=== PATIENT | female | born 1935 | race Caucasian/White ===

== ENCOUNTER 2016-08-04 19:31 | Inpatient (IN) | payer OTHER ==
[~2016-08-04] VITALS: Ht 157.5 cm; Wt 73.0 kg
[~2016-08-04 19:31] MED LIST: ACETAMINOPHEN325 M1 PO; ACID CONTROL150 MG PO; ADVAIR 250/501 DISK IH; ALTACE10 MG PO; ALTACE5 MG PO; AMBIEN5 MG PO; AMOXICILLIN500 M1 PO; AMOXICILLIN500 MG PO; ASPIRIN325 MG PO; AYR SALINE NA14.1 GM BOTH NARES; AYR50 ML BOTH NARES; Altace PO; BIOFREEZE GEL TP; BIOFREEZE TP; BISAC-EVAC10 MG PR; CALTRATE 6001 TABLET PO; CARDIZEM CD,CA180 MG PO; CARDIZEM CD,CA300 MG PO; CARDIZEM CD240 MG PO; CARDIZEM60 MG PO; CEFTIN500 MG PO; CENTRUM SILVER1 EAC3 PO; CENTRUM TABLET1 EACH PO; CEPACOL SORE T1 EAC9 MM; CLEOCIN300 MG PO; CLINDAMYCIN HC300 MG PO; COL-RITE100 M1 PO; COLACE100 MG PO; CRANBERRY PLUS1 EAC1 PO; CRANBERRY PLUS1 EACH PO; CRANBERRY PO; CYANOCOBALAM1000 MCG PO; CYMBALTA30 MG PO; Cardizem CD,Cartia X PO; Cardizem PO; Cepacol Lozenge, Sore Throat Lozenge MM; Colace PO; Cranberry PO; DILTIAZEM 24HR300 MG PO; DITROPAN XL10 MG PO; DOCUSATE SODIU100 MG PO; DOXYCYCLINE HY100 MG PO; DULCOLAX10 MG; DULCOLAX10 MG PR; DULOXETINE HCL30 MG PO; DUONEB 2.5-0.5 M3 ML IH; Doxycycline PO; DuoNeb IH; ECOTRIN325 MG PO; ENDOCET 5-3251 EACH PO; ENEMA133 M2 PR; EXELON PATCH4.6 MG TD; EXELON1.5 MG PO; EXELON3 MG PO; Exelon PO; FISH OIL 1,2001 EAC4 PO; FISH OIL CONC1 EACH PO; FLEET ENEMA-AD118 ML PR; FLONASE16 G1 BOTH NARES; FLONASE16 G1 NS; FLORASTOR250 MG PO; FLUTICASONE PROP BOTH NARES; FLUZONE HI180 MCG/06 IM; FOSAMAX PLUS PO; FREEZE IT RE113.4 GM TP; FUROSEMIDE20 MG PO; FUROSEMIDE40 MG PO; Flonase BOTH NARES; GAVILAX17 GM PO; GLUCOPHAGE500 MG PO; Glucophage PO; I-CAPS AREDS S1 EACH PO; K-DUR10 MEQ PO; K-DUR20 MEQ PO; K-TAB10 MEQ PO; KEFLEX500 MG PO; KLOR-CON 1010 ME1 PO; KLOR-CON M1010 MEQ PO; LASIX20 MG PO; LASIX40 MG PO; LIDOCAINE700 MG TD; LIDODERM 5% P1 PATCH TD; LOPRESSOR100 M1 PO; LOPRESSOR50 MG PO; LUTEIN20 M1 PO; LUTEIN20 MG PO; LYRICA100 MG PO; LYRICA50 MG PO; LYRICA75 MG PO; MACROBID100 MG PO; MAG-OXIDE PO; MAG-OXIDE400 MG PO; MAGNESIUM OXID400 MG PO; MAGNESIUM27 MG PO; MAGNESIUM400 M1 PO; MAGNESIUM500 MG PO; MAGOX 400400 MG PO; METOPROLOL TAR100 MG PO; MILK OF MAGN PO; MILK OF MAGNESI10 ML PO; MIRALAX17 GM PO; MULTIVITAMIN1 EAC2 PO; Mag-Ox PO; Milk Of Magnesia,MOM PO; NASAL DECONGEST30 ML BOTH NARES; NASONEX17 GM BOTH NARES; NASONEX17 GM NS; NIZORAL SHAMPO120 ML TP; OMEGA-31000 M1 PO; OMEPRAZOLE40 M1 PO; OXAYDO5 MG PO; OXYCODONE HCL10 MG PO; OXYCODONE HCL5 MG PO; OXYCODONE20 MG PO; OXYCONTIN10 MG PO; OXYCONTIN15 MG PO; OXYCONTIN20 MG PO; OXYCONTIN30 MG PO; Ocean Nasal 0.65% BOTH NARES; OxyCONTIN PO; PANTOPRAZOLE SO40 MG PO; PHILLIPS'400 MG/5 M PO; POTASSIUM CHLO10 ME3 PO; POTASSIUM CHLO10 ME4 PO; POTASSIUM CHLO20 ME2 PO; PREMARIN0.625 MG PO; PREMARIN1.25 MG PO; PRENATAL PLUS1 EAC4 PO; PRESERVISIO1 CAPSULE PO; PRESERVISION A1 EAC2 PO; PRESERVISION T1 EACH PO; PRILOSEC10 MG PO; PROTONIX40 MG PO; PROVENTIL,2.5 MG/3 M IH; Pepcid PO; Protonix PO; RAMIPRIL10 MG PO; RAMIPRIL5 MG PO; RANITIDINE HCL150 M1 PO; RANITIDINE HCL150 MG PO; RIVASTIGMINE1.5 MG PO; RIVASTIGMINE3 MG PO; ROXICODONE5 MG PO; Remove Lidoderm Patc TD; SALINE MIST45 ML BOTH NARES; SENEXON-S TABL1 EACH PO; SENNA LAX8.6 MG PO; SENNA S TABLET1 EACH PO; SENNA8.6 MG PO; SPIRIVA1 INHALATI IH; TIZANIDINE HCL2 MG PO; TOPROL XL100 MG PO; TYLENOL REGULA325 MG PO; VENTOLIN HFA18 GM IH; VITAMIN D400 INTUNI PO; Vibramycin, Doryx PO; XARELTO15 MG PO; XOPENEX1.25 MG/0. IH; XOPENEX1.25 MG/3 IH; Xarelto PO; ZANTAC150 MG PO; ZAROXOLYN2.5 MG PO; ZITHROMAX250 MG PO; [UNRECOGNIZED DRUG - OTHER] PO; [UNRECOGNIZED DRUG - OTHER] PO; [UNRECOGNIZED DRUG - OTHER] TP; oxyCODONE PO; predniSONE PO
[2016-08-04 20:14] LABS: EOSINOPHIL (%) 1.3 % (0-5); EOSINOPHIL COUNT 0.1 K/uL (0-0.3); HEMATOCRIT 40.4 % (36.0-46.0); IMMATURE GRANULOCYTE (%) 0.5 % (0.0-0.7); INSTRUMENT ABS NEUTROPHIL CT 6.2 K/uL; LYMPHOCYTE COUNT 0.8 K/uL (1.0-2.8); MCH 27.5 PG (29.0-34.0); MCHC 31.7 G/DL (30.0-36.0); MCV 86.9 FL (83-99); MEAN PLAT.VOLUME 10.6 uM^3 (9.5-12.4); MONOCYTE (%) 11.3 % (3-12); MONOCYTE COUNT 0.9 K/uL (0-0.8); NEUTROPHIL (%) 77.1 % (45-76); NEUTROPHIL COUNT 6.2 K/uL (1.8-6.4); PLATELET COUNT 161 K/uL (156-360); RBC DIS.WIDTH-CV 15.5 % (11.8-14.6); RBC DIS.WIDTH-SD 48.8 % (39-53); RED BLOOD COUNT 4.65 M/uL (3.80-5.20)
[2016-08-04 20:19] LABS: CHLORIDE 106 mEq/L (99-109); POTASSIUM 4.6 mEq/L (3.7-5.4); SODIUM 141 mEq/L (136-147)
[2016-08-04 20:20] LABS: GLUCOSE 133 mg/dL (70-99)
[2016-08-04 20:22] LABS: ANION GAP 11 MEQ/L (2-14)
[2016-08-04 20:24] LABS: GFR ESTIMATE (CALCULATED) 31 mL/min/
[2016-08-04 20:25] LABS: UREA NITROGEN (BUN) 23 mg/dL (9-23)
[2016-08-04 20:32] LABS: TROP-I INTERPRETATION NEGATIVE; TROPONIN-I < 0.01 ng/mL (0.0-0.30)
[2016-08-04 21:03] LABS: ADD MIUA? YES; BILIRUBIN NEGATIVE; BLOOD NEGATIVE; COLOR YELLOW ((YELLOW)); GLUCOSE (STRIP) NEGATIVE; KETONES NEGATIVE; LEUKOCYTES SMALL; NITRITE NEGATIVE; PROTEIN (STRIP) NEGATIVE; SPECIFIC GRAVITY 1.011 (1.000-1.030); UROBILINOGEN 0.2 MG/DL (0.2-1.0)
[2016-08-04 21:36] LABS: BACTERIA RARE /HPF; EPITHELIAL CELLS RARE /HPF; MUCUS TRACE /LPF; RED BLOOD CELLS 0-5 /HPF (0-5); UCUL ADDED? NO; WHITE BLOOD CELLS CLUMP FEW /HPF (0-5)
[2016-08-04] MEDS ORDERED: PROAIR HFA8.5 GM IH (23:03)
[2016-08-04] MEDS ORDERED: PROVENTIL,2.5 MG/3 M IH (23:12)
[2016-08-04] MEDS ORDERED: MIRALAX255 GM PO (23:20)
[2016-08-04] MEDS ORDERED: LYRICA75 MG PO (23:26)
[2016-08-05 02:30] VITALS: BP 137/83
[2016-08-05 04:14] VITALS: BP 152/72
[2016-08-05 07:40] VITALS: BP 169/85
[2016-08-05 08:41] LABS: METH RESISTANT S AUREUS PCR POSITIVE (NEGATIVE); PROBE CHECK PASS
[2016-08-05 10:25] LABS: HEMATOCRIT 40.2 % (36.0-46.0); MCH 27.5 PG (29.0-34.0); MCHC 31.3 G/DL (30.0-36.0); MCV 87.8 FL (83-99); MEAN PLAT.VOLUME 10.7 uM^3 (9.5-12.4); PLATELET COUNT 137 K/uL (156-360); RBC DIS.WIDTH-CV 15.4 % (11.8-14.6); RBC DIS.WIDTH-SD 49.1 % (39-53); RED BLOOD COUNT 4.58 M/uL (3.80-5.20); WHITE BLOOD COUNT 6.9 K/uL (4.1-10.2)
[2016-08-05 10:43] LABS: ANION GAP 9 MEQ/L (2-14); CHLORIDE 106 MEQ/L (99-109); POTASSIUM 4.2 MEQ/L (3.7-5.4); SAMPLE HEMOLYSIS CHECK 0; SAMPLE ICTERIC CHECK 0; SAMPLE LIPEMIA CHECK 0; SODIUM 142 MEQ/L (136-147)
[2016-08-05 10:49] LABS: GFR ESTIMATE (CALCULATED) 42 mL/min/; GLUCOSE 141 mg/dL (70-99); UREA NITROGEN (BUN) 19 mg/dL (9-23)
[2016-08-05 10:50] VITALS: BP 166/94
[2016-08-05 15:57] VITALS: BP 146/67
[2016-08-05 20:25] VITALS: BP 142/74
[2016-08-06 00:10] VITALS: BP 140/78
[2016-08-06 03:49] VITALS: BP 150/79
[2016-08-06 06:36] LABS: ANION GAP 9 MEQ/L (2-14); CHLORIDE 103 MEQ/L (99-109); GFR ESTIMATE (CALCULATED) 50 mL/min/; POTASSIUM 3.9 MEQ/L (3.7-5.4); SAMPLE HEMOLYSIS CHECK 0; SAMPLE ICTERIC CHECK 0; SAMPLE LIPEMIA CHECK 0; SODIUM 144 MEQ/L (136-147); UREA NITROGEN (BUN) 16 mg/dL (9-23)
[2016-08-06 07:28] LABS: EOSINOPHIL (%) 1.5 % (0-5); EOSINOPHIL COUNT 0.1 K/uL (0-0.3); HEMATOCRIT 39.7 % (36.0-46.0); IMMATURE GRANULOCYTE (%) 0.4 % (0.0-0.7); LYMPHOCYTE COUNT 0.5 K/uL (1.0-2.8); MCH 27.9 PG (29.0-34.0); MCHC 32.2 G/DL (30.0-36.0); MCV 86.5 FL (83-99); MEAN PLAT.VOLUME 11.1 uM^3 (9.5-12.4); MONOCYTE (%) 11.2 % (3-12); MONOCYTE COUNT 0.6 K/uL (0-0.8); PLATELET COUNT 146 K/uL (156-360); RBC DIS.WIDTH-CV 15.2 % (11.8-14.6); RBC DIS.WIDTH-SD 47.9 % (39-53); RED BLOOD COUNT 4.59 M/uL (3.80-5.20); WHITE BLOOD COUNT 5.2 K/uL (4.1-10.2)
[2016-08-06 07:33] VITALS: BP 138/70
[2016-08-06 08:05] LABS: GLUCOSE 101 mg/dL (70-99)
[2016-08-06 11:55] VITALS: BP 180/56
[2016-08-06 19:45] VITALS: BP 124/82
[2016-08-06 23:45] VITALS: BP 152/60
[2016-08-07 04:18] VITALS: BP 164/77
[2016-08-07 06:04] LABS: EOSINOPHIL (%) 1.9 % (0-5); EOSINOPHIL COUNT 0.1 K/uL (0-0.3); HEMATOCRIT 40.7 % (36.0-46.0); IMMATURE GRANULOCYTE (%) 0.4 % (0.0-0.7); INSTRUMENT ABS NEUTROPHIL CT 3.9 K/uL; LYMPHOCYTE COUNT 0.6 K/uL (1.0-2.8); MCH 27.2 PG (29.0-34.0); MCHC 31.4 G/DL (30.0-36.0); MCV 86.4 FL (83-99); MEAN PLAT.VOLUME 10.6 uM^3 (9.5-12.4); MONOCYTE (%) 12.2 % (3-12); MONOCYTE COUNT 0.6 K/uL (0-0.8); NEUTROPHIL (%) 74.3 % (45-76); NEUTROPHIL COUNT 3.9 K/uL (1.8-6.4); PLATELET COUNT 133 K/uL (156-360); RBC DIS.WIDTH-CV 15.2 % (11.8-14.6); RBC DIS.WIDTH-SD 47.8 % (39-53); RED BLOOD COUNT 4.71 M/uL (3.80-5.20); WHITE BLOOD COUNT 5.3 K/uL (4.1-10.2)
[2016-08-07 06:29] LABS: ANION GAP 8 MEQ/L (2-14); CHLORIDE 104 MEQ/L (99-109); GFR ESTIMATE (CALCULATED) 50 mL/min/; GLUCOSE 97 mg/dL (70-99); POTASSIUM 3.9 MEQ/L (3.7-5.4); SAMPLE HEMOLYSIS CHECK 0; SAMPLE ICTERIC CHECK 0; SAMPLE LIPEMIA CHECK 0; SODIUM 144 MEQ/L (136-147); UREA NITROGEN (BUN) 16 mg/dL (9-23)
[2016-08-07 07:41] VITALS: BP 177/85
[2016-08-07 12:02] VITALS: BP 124/65
[2016-08-07 15:38] VITALS: BP 137/63
== END 2016-08-07 17:06 | disposition home or self-care (01) | DRG 689 ==
LOC: EME 19:31 → EDOF 08-05 00:48 → 5WEST 08-05 00:48 → EDOF 08-05 00:48 → 5WEST 08-05 02:06
PROVIDERS: Emergency Medicine; Hospitalist
DX: N39.0 Urinary tract infection, site not specified (principal); G93.40 Encephalopathy, unspecified; J96.21 Acute and chronic respiratory failure with hypoxia; F03.90 Unspecified dementia, unspecified severity, without behavioral disturbance, psychotic disturbance, mood disturbance, and anxiety; J44.9 Chronic obstructive pulmonary disease, unspecified; I48.0 Paroxysmal atrial fibrillation; F32.9 Major depressive disorder, single episode, unspecified; E11.40 Type 2 diabetes mellitus with diabetic neuropathy, unspecified; N17.9 Acute kidney failure, unspecified; G89.4 Chronic pain syndrome; E78.5 Hyperlipidemia, unspecified; K21.9 Gastro-esophageal reflux disease without esophagitis; D50.9 Iron deficiency anemia, unspecified; G43.909 Migraine, unspecified, not intractable, without status migrainosus; I50.32 Chronic diastolic (congestive) heart failure; I11.0 Hypertensive heart disease with heart failure; Z66 Do not resuscitate; Z79.891 Long term (current) use of opiate analgesic
CPT/HCPCS: 70450; 71010; 71020; 80048; 81003; 83605; 84484; 85025; 85027; 87040; 87086; 87641; 93005; 93306; 94640 76; 94799; 99202; 99281; 99285; G8978 GP CI; G8979 GP CH; J0696; J1650; J1940; J7030; J7050

== ENCOUNTER 2017-01-31 10:42 | Emergency (ER) | payer OTHER ==
[~2017-01-31] VITALS: Ht 157.5 cm; Wt 72.0 kg
[~2017-01-31 10:42] MED LIST changes: +MIRALAX255 GM PO; +PROAIR HFA8.5 GM IH
[2017-01-31 11:42] LABS: EOSINOPHIL (%) 0.1 % (0-5); HEMATOCRIT 38.9 % (36.0-46.0); IMMATURE GRANULOCYTE (%) 0.3 % (0.0-0.7); INSTRUMENT ABS NEUTROPHIL CT 7.7 K/uL; LYMPHOCYTE COUNT 0.6 K/uL (1.0-2.8); MCHC 32.6 G/DL (30.0-36.0); MCV 85.9 FL (83-99); MEAN PLAT.VOLUME 10.5 uM^3 (9.5-12.4); MONOCYTE (%) 7.3 % (3-12); MONOCYTE COUNT 0.7 K/uL (0-0.8); NEUTROPHIL (%) 85.6 % (45-76); NEUTROPHIL COUNT 7.7 K/uL (1.8-6.4); PLATELET COUNT 130 K/uL (156-360); RBC DIS.WIDTH-SD 47.1 % (39-53); RED BLOOD COUNT 4.53 M/uL (3.80-5.20)
[2017-01-31 11:54] LABS: CHLORIDE 101 mEq/L (99-109); POTASSIUM 3.6 mEq/L (3.7-5.4); SODIUM 141 mEq/L (136-147)
[2017-01-31 11:56] LABS: GLUCOSE 125 mg/dL (70-99)
[2017-01-31 11:57] LABS: ANION GAP 13 MEQ/L (2-14)
[2017-01-31 11:59] LABS: GFR ESTIMATE (CALCULATED) 56 mL/min/
[2017-01-31] MEDS ORDERED: CRANBERRY425 MG PO (11:59)
[2017-01-31 12:00] LABS: UREA NITROGEN (BUN) 15 mg/dL (9-23)
[2017-01-31] MEDS ORDERED: AYR SALINE NA14.1 GM BOTH NARES (12:02)
[2017-01-31] MEDS ORDERED: BIOFREEZE TP (12:03)
[2017-01-31] MEDS ORDERED: PRESERVISION A1 EAC2 PO (12:11)
[2017-01-31] MEDS ORDERED: LASIX80 MG PO (12:13)
[2017-01-31] MEDS ORDERED: VIBRAMYCIN100 MG PO (12:14)
[2017-01-31] MEDS ORDERED: FLORASTOR250 MG PO (12:15)
[2017-01-31] MEDS ORDERED: SYSTANE ULTRA 015 ML BOTH EYES (12:17)
[2017-01-31] MEDS ORDERED: PYRIDIUM100 MG PO (12:17)
[2017-01-31 13:37] LABS: ADD MIUA? NO; BILIRUBIN NEGATIVE; BLOOD NEGATIVE; COLOR YELLOW ((YELLOW)); GLUCOSE (STRIP) NEGATIVE; KETONES NEGATIVE; LEUKOCYTES NEGATIVE; NITRITE NEGATIVE; PROTEIN (STRIP) NEGATIVE; UCUL ADDED? NO; UROBILINOGEN 0.2 MG/DL (0.2-1.0)
[2017-01-31 17:05] VITALS: BP 146/68
== END 2017-01-31 17:06 ==
LOC: EME 10:42
PROVIDERS: Emergency Medicine
DX: R50.9 Fever, unspecified (principal); J44.9 Chronic obstructive pulmonary disease, unspecified; R22.42 Localized swelling, mass and lump, left lower limb; I11.0 Hypertensive heart disease with heart failure; I50.9 Heart failure, unspecified; F03.90 Unspecified dementia, unspecified severity, without behavioral disturbance, psychotic disturbance, mood disturbance, and anxiety; E78.5 Hyperlipidemia, unspecified; K21.9 Gastro-esophageal reflux disease without esophagitis
CPT/HCPCS: 71010; 80048; 81003; 83605; 85025; 93971; 99281; 99285

== ENCOUNTER 2017-03-10 11:08 | Inpatient (IN) | payer OTHER ==
[~2017-03-10] VITALS: Ht 158.8 cm; Wt 75.5 kg
[~2017-03-10 11:08] MED LIST changes: +CRANBERRY425 MG PO; +LASIX80 MG PO; +PYRIDIUM100 MG PO; +SYSTANE ULTRA 015 ML BOTH EYES; +VIBRAMYCIN100 MG PO
[2017-03-10 11:58] LABS: ADD MIUA? NO; BILIRUBIN NEGATIVE; BLOOD NEGATIVE; COLOR COLORLESS ((YELLOW)); GLUCOSE (STRIP) NEGATIVE; KETONES NEGATIVE; LEUKOCYTES NEGATIVE; NITRITE NEGATIVE; PROTEIN (STRIP) NEGATIVE; SPECIFIC GRAVITY 1.004 (1.000-1.030); UCUL ADDED? NO; UROBILINOGEN 0.2 MG/DL (0.2-1.0)
[2017-03-10 12:07] LABS: EOSINOPHIL (%) 0.3 % (0-5); HEMATOCRIT 43.7 % (36.0-46.0); IMMATURE GRANULOCYTE (%) 0.6 % (0.0-0.7); IMMATURE GRANULOCYTE COUNT 0.1 K/uL; INSTRUMENT ABS NEUTROPHIL CT 8.7 K/uL; LYMPHOCYTE COUNT 0.4 K/uL (1.0-2.8); MCH 27.4 PG (29.0-34.0); MCHC 31.8 G/DL (30.0-36.0); MCV 86.2 FL (83-99); MEAN PLAT.VOLUME 10.8 uM^3 (9.5-12.4); MONOCYTE COUNT 0.5 K/uL (0-0.8); NEUTROPHIL (%) 89.8 % (45-76); NEUTROPHIL COUNT 8.7 K/uL (1.8-6.4); PLATELET COUNT 167 K/uL (156-360); RBC DIS.WIDTH-CV 15.9 % (11.8-14.6); RBC DIS.WIDTH-SD 49.4 % (39-53); RED BLOOD COUNT 5.07 M/uL (3.80-5.20); WHITE BLOOD COUNT 9.7 K/uL (4.1-10.2)
[2017-03-10 12:12] LABS: INTER. NORMALIZED RATIO 1.1; PROTHROMBIN TIME 12.9 SEC (10.2-12.9)
[2017-03-10 12:15] LABS: CHLORIDE 101 mEq/L (99-109); POTASSIUM 4.3 mEq/L (3.7-5.4); PTT 29.3 SEC (25-37); SODIUM 140 mEq/L (136-147)
[2017-03-10 12:18] LABS: GLUCOSE 134 mg/dL (70-99)
[2017-03-10 12:19] LABS: ANION GAP 12 MEQ/L (2-14); TOTAL BILIRUBIN 1.2 mg/dL (0.0-1.0)
[2017-03-10 12:21] LABS: ALKALINE PHOSPHATASE 159 IU/L (3-129); GFR ESTIMATE (CALCULATED) 46 mL/min/
[2017-03-10 12:22] LABS: UREA NITROGEN (BUN) 17 mg/dL (9-23)
[2017-03-10 12:23] LABS: DIRECT BILIRUBIN 0.4 mg/dL (0.0-0.3)
[2017-03-10 12:25] LABS: LIPASE 4 U/L (1.0-51.0)
[2017-03-10 12:27] LABS: TROP-I INTERPRETATION NEGATIVE; TROPONIN-I 0.02 ng/mL (0.0-0.30)
[2017-03-10] MEDS ORDERED: BIOFREEZE TP (12:45)
[2017-03-10] MEDS ORDERED: LIDODERM 5% P1 PATCH TD (12:46)
[2017-03-10] MEDS ORDERED: [UNRECOGNIZED DRUG - OTHER] TP (12:47)
[2017-03-10] MEDS ORDERED: VENTOLIN HFA18 GM IH (12:48)
[2017-03-10] MEDS ORDERED: SENEXON-S TABL1 EACH PO (12:54)
[2017-03-10] MEDS ORDERED: KLOR-CON 1010 ME1 PO (12:56)
[2017-03-10 17:05] VITALS: BP 122/87
[2017-03-10 20:00] VITALS: BP 127/70
[2017-03-10 23:36] VITALS: BP 158/84
[2017-03-11 01:48] LABS: METH RESISTANT S AUREUS PCR POSITIVE (NEGATIVE)
[2017-03-11 01:56] LABS: PROBE CHECK PASS
[2017-03-11 03:44] VITALS: BP 136/76
[2017-03-11 07:22] LABS: HEMATOCRIT 37.8 % (36.0-46.0); MCH 28.1 PG (29.0-34.0); MCHC 32.5 G/DL (30.0-36.0); MCV 86.5 FL (83-99); RBC DIS.WIDTH-CV 15.9 % (11.8-14.6); RBC DIS.WIDTH-SD 50.4 % (39-53); RED BLOOD COUNT 4.37 M/uL (3.80-5.20); WHITE BLOOD COUNT 10.9 K/uL (4.1-10.2)
[2017-03-11 07:24] LABS: ANION GAP 14 MEQ/L (2-14); CHLORIDE 105 MEQ/L (99-109); GFR ESTIMATE (CALCULATED) 56 mL/min/; GLUCOSE 108 mg/dL (70-99); POTASSIUM 3.8 MEQ/L (3.7-5.4); SAMPLE HEMOLYSIS CHECK 0; SAMPLE ICTERIC CHECK 0; SAMPLE LIPEMIA CHECK 0; SODIUM 142 MEQ/L (136-147); UREA NITROGEN (BUN) 12 mg/dL (9-23)
[2017-03-11 08:27] LABS: PLATELET COUNT UNABLE TO REPORT K/uL (156-360)
[2017-03-11 09:10] VITALS: BP 136/74
[2017-03-11 13:30] VITALS: BP 132/74
[2017-03-11 16:51] VITALS: BP 136/72
[2017-03-11 20:05] VITALS: BP 142/84
[2017-03-11 23:44] VITALS: BP 122/74
[2017-03-12 01:30] LABS: POINT-OF-CARE METER ID UU14188625
[2017-03-12 04:00] VITALS: BP 120/80
[2017-03-12 06:36] LABS: HEMATOCRIT 40.9 % (36.0-46.0); MCH 27.1 PG (29.0-34.0); MCHC 31.8 G/DL (30.0-36.0); MCV 85.4 FL (83-99); MEAN PLAT.VOLUME 9.7 uM^3 (9.5-12.4); RBC DIS.WIDTH-CV 15.3 % (11.8-14.6); RBC DIS.WIDTH-SD 48.3 % (39-53); RED BLOOD COUNT 4.79 M/uL (3.80-5.20); WHITE BLOOD COUNT 6.9 K/uL (4.1-10.2)
[2017-03-12 06:54] LABS: PLATELET COUNT 141 K/uL (156-360)
[2017-03-12 07:23] LABS: ALKALINE PHOSPHATASE 120 IU/L (3-129); ANION GAP 13 MEQ/L (2-14); CHLORIDE 105 MEQ/L (99-109); GFR ESTIMATE (CALCULATED) > 59 mL/min/; GLUCOSE 153 mg/dL (70-99); POTASSIUM 3.3 MEQ/L (3.7-5.4); SAMPLE HEMOLYSIS CHECK 0; SAMPLE ICTERIC CHECK 0; SAMPLE LIPEMIA CHECK 0; SODIUM 142 MEQ/L (136-147); TOTAL BILIRUBIN 1.4 MG/DL (0.0-1.0); UREA NITROGEN (BUN) 12 mg/dL (9-23)
[2017-03-12 07:54] VITALS: BP 136/74
[2017-03-12 12:12] VITALS: BP 124/68
[2017-03-12 16:19] VITALS: BP 122/68
[2017-03-12 19:48] VITALS: BP 132/78
[2017-03-12 23:52] VITALS: BP 140/76
[2017-03-13 03:54] VITALS: BP 132/80
[2017-03-13 06:19] LABS: HEMATOCRIT 43.5 % (36.0-46.0); MCH 27.9 PG (29.0-34.0); MCHC 32.9 G/DL (30.0-36.0); PLATELET COUNT 177 K/uL (156-360); RBC DIS.WIDTH-CV 15.7 % (11.8-14.6); RBC DIS.WIDTH-SD 48.2 % (39-53); RED BLOOD COUNT 5.12 M/uL (3.80-5.20)
[2017-03-13 06:47] LABS: ANION GAP 12 MEQ/L (2-14); CHLORIDE 108 MEQ/L (99-109); GFR ESTIMATE (CALCULATED) > 59 mL/min/; GLUCOSE 129 mg/dL (70-99); POTASSIUM 3.2 MEQ/L (3.7-5.4); SAMPLE HEMOLYSIS CHECK 0; SAMPLE ICTERIC CHECK 0; SAMPLE LIPEMIA CHECK 0; SODIUM 147 MEQ/L (136-147); UREA NITROGEN (BUN) 15 mg/dL (9-23)
[2017-03-13 07:25] VITALS: BP 124/72
[2017-03-13 11:52] VITALS: BP 126/72
[2017-03-13 16:23] VITALS: BP 134/80
[2017-03-13 18:04] LABS: C DIFF TOXIN NEGATIVE (NEGATIVE)
[2017-03-13 18:13] LABS: PROBE CHECK PASS; SPECIMEN PROCESSING CONTROL PASS
[2017-03-13 19:44] VITALS: BP 190/89
[2017-03-13 23:45] VITALS: BP 187/82
[2017-03-14 07:03] LABS: ANION GAP 12 MEQ/L (2-14); CHLORIDE 110 MEQ/L (99-109); GFR ESTIMATE (CALCULATED) 56 mL/min/; GLUCOSE 122 mg/dL (70-99); POTASSIUM 3.8 MEQ/L (3.7-5.4); SAMPLE HEMOLYSIS CHECK 0; SAMPLE ICTERIC CHECK 0; SAMPLE LIPEMIA CHECK 0; SODIUM 144 MEQ/L (136-147); UREA NITROGEN (BUN) 19 mg/dL (9-23)
[2017-03-14 07:57] VITALS: BP 173/106
[2017-03-14 11:08] VITALS: BP 162/100
[2017-03-14 16:30] VITALS: BP 189/107
[2017-03-14 19:11] VITALS: BP 165/101
[2017-03-15 00:41] VITALS: BP 168/88
[2017-03-15 03:39] VITALS: BP 142/78
[2017-03-15 06:30] LABS: HEMATOCRIT 47.2 % (36.0-46.0); MCH 26.6 PG (29.0-34.0); MCHC 31.4 G/DL (30.0-36.0); MCV 84.9 FL (83-99); MEAN PLAT.VOLUME 10.2 uM^3 (9.5-12.4); RBC DIS.WIDTH-CV 15.2 % (11.8-14.6); RBC DIS.WIDTH-SD 46.9 % (39-53); RED BLOOD COUNT 5.56 M/uL (3.80-5.20); WHITE BLOOD COUNT 10.1 K/uL (4.1-10.2)
[2017-03-15 06:32] LABS: PLATELET COUNT 237 K/uL (156-360)
[2017-03-15 07:11] LABS: ANION GAP 10 MEQ/L (2-14); CHLORIDE 111 MEQ/L (99-109); GFR ESTIMATE (CALCULATED) 56 mL/min/; GLUCOSE 121 mg/dL (70-99); SAMPLE HEMOLYSIS CHECK 0; SAMPLE ICTERIC CHECK 0; SAMPLE LIPEMIA CHECK 0; SODIUM 146 MEQ/L (136-147); UREA NITROGEN (BUN) 21 mg/dL (9-23)
[2017-03-15 07:43] VITALS: BP 190/92
[2017-03-15] MEDS ORDERED: FUROSEMIDE20 MG PO (09:28)
[2017-03-15] MEDS ORDERED: PREDNISONE20 MG PO (09:28)
[2017-03-15] MEDS ORDERED: MUCINEX600 MG PO (09:28)
[2017-03-15 11:30] VITALS: BP 186/89
== END 2017-03-15 12:46 | DRG 189 ==
LOC: EME → EDBD 11:08 → 5SOUTH 14:39 → EDOF 14:39 → CANRESERV 14:42 → ENRESERV 14:42 → 5SOUTH 16:43
PROVIDERS: Emergency Medicine; Hospitalist; Internal Medicine; Nurse Practitioner Adult Health; Physician Assistant Medical
DX: J96.01 Acute respiratory failure with hypoxia (principal); J44.1 Chronic obstructive pulmonary disease with (acute) exacerbation; J44.0 Chronic obstructive pulmonary disease with (acute) lower respiratory infection; J18.9 Pneumonia, unspecified organism; Y95 Nosocomial condition; I11.0 Hypertensive heart disease with heart failure; I50.33 Acute on chronic diastolic (congestive) heart failure; E11.42 Type 2 diabetes mellitus with diabetic polyneuropathy; E87.6 Hypokalemia; Z99.81 Dependence on supplemental oxygen; I95.9 Hypotension, unspecified; I34.0 Nonrheumatic mitral (valve) insufficiency; I48.91 Unspecified atrial fibrillation; G89.29 Other chronic pain; E78.5 Hyperlipidemia, unspecified; F03.90 Unspecified dementia, unspecified severity, without behavioral disturbance, psychotic disturbance, mood disturbance, and anxiety; J98.11 Atelectasis; K21.9 Gastro-esophageal reflux disease without esophagitis; G43.909 Migraine, unspecified, not intractable, without status migrainosus; R29.6 Repeated falls; R00.0 Tachycardia, unspecified; Z91.81 History of falling; Z66 Do not resuscitate
CPT/HCPCS: 71010; 71020; 71275; 74174; 80048; 80053; 80076; 80202; 81003; 82948; 83605; 83690; 83880; 84484; 85025; 85027; 85610; 85730; 87040; 87493; 87641; 93005; 94640; 94640 76; 94760; 94799; 97530 GP; 99202; 99281; 99285; J1650; J2543; J2920; J3370; J7030; J7050; J7512

== ENCOUNTER 2017-06-16 21:13 | Inpatient (IN) | payer OTHER ==
[~2017-06-16] VITALS: Ht 157.5 cm; Wt 69.5 kg
[~2017-06-16 21:13] MED LIST changes: +MUCINEX600 MG PO; +PREDNISONE20 MG PO
[2017-06-16 21:42] LABS: HEMATOCRIT 41.2 % (36.0-46.0); HEMOGLOBIN 13.2 G/DL (11.9-15.5); MCV 87.5 FL (83-99); PLATELET COUNT 160 K/uL (156-360); RBC DIS.WIDTH-CV 17.7 % (11.8-14.6); RED BLOOD COUNT 4.71 M/uL (3.80-5.20); WHITE BLOOD COUNT 5.5 K/uL (4.1-10.2)
[2017-06-16 21:53] LABS: CHLORIDE 115 mEq/L (99-109); SODIUM 134 mEq/L (136-147)
[2017-06-16 21:54] LABS: GLUCOSE 148 mg/dL (70-99)
[2017-06-16 21:58] LABS: CREATININE 1.1 mg/dL (0.6-1.3); GFR ESTIMATE (CALCULATED) 50 mL/min/
[2017-06-16 21:59] LABS: UREA NITROGEN (BUN) 29 mg/dL (9-23)
[2017-06-16 22:06] LABS: POTASSIUM 6.2 mEq/L (3.7-5.4)
[2017-06-17 00:05] LABS: APPEARANCE CLEAR ((CLEAR)); BILIRUBIN NEGATIVE; BLOOD NEGATIVE; COLOR YELLOW ((YELLOW)); GLUCOSE (STRIP) NEGATIVE; KETONES NEGATIVE; LEUKOCYTES TRACE; NITRITE NEGATIVE; PROTEIN (STRIP) NEGATIVE; SPECIFIC GRAVITY 1.008 (1.000-1.030); UROBILINOGEN 0.2 MG/DL (0.2-1.0)
[2017-06-17 00:13] LABS: BACTERIA RARE /HPF; EPITHELIAL CELLS RARE /HPF; MUCUS NONE SEEN /LPF; RED BLOOD CELLS 0-5 /HPF (0-5); UCUL ADDED? NO; WHITE BLOOD CELLS 0-5 /HPF (0-5)
[2017-06-17 00:48] LABS: CHLORIDE 119 mEq/L (99-109); SODIUM 137 mEq/L (136-147)
[2017-06-17 00:49] LABS: GLUCOSE 120 mg/dL (70-99)
[2017-06-17 00:51] LABS: POTASSIUM 6.2 mEq/L (3.7-5.4)
[2017-06-17 00:53] LABS: CREATININE 0.9 mg/dL (0.6-1.3); GFR ESTIMATE (CALCULATED) > 59 mL/min/
[2017-06-17 00:54] LABS: UREA NITROGEN (BUN) 27 mg/dL (9-23)
[2017-06-17 01:33] LABS: BASE EXCESS -11.6 mEq/L (-3 to +3); BICARBONATE 15.6 mEq/L (22-26); PO2 94 mm Hg (80-100)
[2017-06-17 01:34] LABS: COMMENTS - BLOOD GASES A+C+; DEVICE NC; O2 FLOW 2 L/MIN; PCO2 39 mm Hg (35-45); SITE RR; pH 7.21 (7.35-7.45)
[2017-06-17] MEDS ORDERED: ALDACTONE25 MG PO (01:51)
[2017-06-17] MEDS ORDERED: TRAMADOL HCL50 MG PO ×2 (01:53)
[2017-06-17] MEDS ORDERED: ZANTAC150 MG PO (01:54)
[2017-06-17] MEDS ORDERED: OXYCODONE HCL5 MG PO (01:55)
[2017-06-17] MEDS ORDERED: KLOR-CON 1010 ME1 PO (01:57)
[2017-06-17 05:32] LABS: CHLORIDE 118 mEq/L (99-109); SODIUM 138 mEq/L (136-147)
[2017-06-17 05:33] LABS: MAGNESIUM 1.7 mg/dL (1.3-2.7)
[2017-06-17 05:34] LABS: GLUCOSE 99 mg/dL (70-99)
[2017-06-17 05:38] LABS: CREATININE 0.9 mg/dL (0.6-1.3); GFR ESTIMATE (CALCULATED) > 59 mL/min/; PHOSPHORUS 3.9 mg/dL (2.5-4.9)
[2017-06-17 05:39] LABS: UREA NITROGEN (BUN) 25 mg/dL (9-23)
[2017-06-17 05:41] LABS: CREATINE KINASE 21 IU/L (1-294); POTASSIUM 6.7 mEq/L (3.7-5.4)
[2017-06-17 06:04] VITALS: BP 164/74
[2017-06-17 12:02] VITALS: BP 146/82
[2017-06-17 12:51] LABS: TROP-I INTERPRETATION NEGATIVE; TROPONIN-I < 0.01 ng/mL (0.0-0.30)
[2017-06-17 13:03] LABS: CHLORIDE 117 MEQ/L (99-109); GFR ESTIMATE (CALCULATED) 56 mL/min/; GLUCOSE 93 mg/dL (70-99); SODIUM 139 MEQ/L (136-147); UREA NITROGEN (BUN) 20 mg/dL (9-23)
[2017-06-17 16:16] LABS: APPEARANCE CLEAR ((CLEAR)); BILIRUBIN NEGATIVE; BLOOD NEGATIVE; COLOR STRAW ((YELLOW)); GLUCOSE (STRIP) NEGATIVE; KETONES NEGATIVE; LEUKOCYTES NEGATIVE; NITRITE NEGATIVE; PROTEIN (STRIP) NEGATIVE; SPECIFIC GRAVITY 1.009 (1.000-1.030); UCUL ADDED? NO; UROBILINOGEN 0.2 MG/DL (0.2-1.0)
[2017-06-17 18:14] LABS: TROP-I INTERPRETATION NEGATIVE; TROPONIN-I < 0.01 ng/mL (0.0-0.30)
[2017-06-17 19:47] VITALS: BP 122/74
[2017-06-17 23:39] VITALS: BP 124/71
[2017-06-18 03:42] VITALS: BP 133/95
[2017-06-18 06:41] LABS: HEMATOCRIT 38.1 % (36.0-46.0); MCH 27.3 PG (29.0-34.0); MCHC 31.5 G/DL (30.0-36.0); MCV 86.6 FL (83-99); PLATELET COUNT 128 K/uL (156-360); RBC DIS.WIDTH-CV 17.3 % (11.8-14.6); RBC DIS.WIDTH-SD 55.8 % (39-53); WHITE BLOOD COUNT 3.9 K/uL (4.1-10.2)
[2017-06-18 07:08] VITALS: BP 135/75
[2017-06-18 07:15] LABS: ALBUMIN 3.4 G/DL (3.2-4.8); CHLORIDE 112 MEQ/L (99-109); CREATININE 0.9 MG/DL (0.6-1.3); GFR ESTIMATE (CALCULATED) > 59 mL/min/; GLUCOSE 88 mg/dL (70-99); PHOSPHORUS 3.8 mg/dL (2.5-4.9); SODIUM 141 MEQ/L (136-147); UREA NITROGEN (BUN) 18 mg/dL (9-23)
[2017-06-18 07:16] LABS: POTASSIUM 4.7 MEQ/L (3.7-5.4)
[2017-06-18 11:03] VITALS: BP 129/80
[2017-06-18 12:57] LABS: CHLORIDE 111 MEQ/L (99-109); CREATININE 0.9 MG/DL (0.6-1.3); GFR ESTIMATE (CALCULATED) > 59 mL/min/; GLUCOSE 102 mg/dL (70-99); POTASSIUM 4.6 MEQ/L (3.7-5.4); SODIUM 140 MEQ/L (136-147); UREA NITROGEN (BUN) 16 mg/dL (9-23)
== END 2017-06-18 14:44 | disposition home or self-care (01) | DRG 641 ==
LOC: EME → EDBD 21:13 → EME 21:13 → EDOF 06-17 02:55 → 5SOUTH 06-17 02:55 → ENRESERV 06-17 02:57 → 5SOUTH 06-17 05:36
PROVIDERS: Emergency Medicine; Hospitalist; Internal Medicine Nephrology; Physician Assistant Medical
DX: E87.5 Hyperkalemia (principal); E87.2 Acidosis; I11.0 Hypertensive heart disease with heart failure; I50.32 Chronic diastolic (congestive) heart failure; J96.10 Chronic respiratory failure, unspecified whether with hypoxia or hypercapnia; Z99.81 Dependence on supplemental oxygen; I48.2 Chronic atrial fibrillation; T50.0X5A Adverse effect of mineralocorticoids and their antagonists, initial encounter; T46.4X5A Adverse effect of angiotensin-converting-enzyme inhibitors, initial encounter; T50.3X5A Adverse effect of electrolytic, caloric and water-balance agents, initial encounter; F03.90 Unspecified dementia, unspecified severity, without behavioral disturbance, psychotic disturbance, mood disturbance, and anxiety; J43.9 Emphysema, unspecified; K21.9 Gastro-esophageal reflux disease without esophagitis; E11.42 Type 2 diabetes mellitus with diabetic polyneuropathy; R29.6 Repeated falls; R79.89 Other specified abnormal findings of blood chemistry
CPT/HCPCS: 36415; 36600; 80048; 80048 91; 80069; 81003; 82436; 82550; 82803; 82948; 83605; 83735; 84100; 84133; 84300; 84484; 85027; 93005; 93971; 94640; 94640 76; 94799; 99281; 99285; J1644; J7030; J7050

== ENCOUNTER 2017-09-05 21:21 | Emergency (ER) | payer OTHER ==
[~2017-09-05] VITALS: Ht 157.5 cm; Wt 71.6 kg
[~2017-09-05 21:21] MED LIST changes: +ALDACTONE25 MG PO; +TRAMADOL HCL50 MG PO
[2017-09-05 21:58] LABS: HEMATOCRIT 40.4 % (36.0-46.0); HEMOGLOBIN 13.3 G/DL (11.9-15.5); MCH 28.2 PG (29.0-34.0); MCHC 32.9 G/DL (30.0-36.0); MCV 85.6 FL (83-99); PLATELET COUNT 147 K/uL (156-360); RBC DIS.WIDTH-CV 16.4 % (11.8-14.6); RBC DIS.WIDTH-SD 50.6 % (39-53); RED BLOOD COUNT 4.72 M/uL (3.80-5.20); WHITE BLOOD COUNT 7.3 K/uL (4.1-10.2)
[2017-09-05 22:28] LABS: TROP-I INTERPRETATION NEGATIVE; TROPONIN-I 0.02 ng/mL (0.0-0.30)
[2017-09-05 22:36] LABS: ALBUMIN 3.9 g/dL (3.2-4.8)
[2017-09-05 22:37] LABS: CHLORIDE 110 mEq/L (99-109); POTASSIUM 4.8 mEq/L (3.7-5.4); SODIUM 140 mEq/L (136-147)
[2017-09-05 22:39] LABS: GLUCOSE 156 mg/dL (70-99); TOTAL PROTEIN 7.2 g/dL (6.4-8.3)
[2017-09-05 22:41] LABS: TOTAL BILIRUBIN 0.5 mg/dL (0.0-1.0)
[2017-09-05 22:42] LABS: ALKALINE PHOSPHATASE 127 IU/L (3-129)
[2017-09-05 22:43] LABS: CREATININE 1.3 mg/dL (0.6-1.3); GFR ESTIMATE (CALCULATED) 41 mL/min/
[2017-09-05 22:44] LABS: AST (GOT) 21 IU/L (2-34); UREA NITROGEN (BUN) 24 mg/dL (9-23)
[2017-09-05 22:46] LABS: ALT (GPT) 10 IU/L (3-49); LIPASE 20 U/L (1.0-51.0)
[2017-09-05 22:47] LABS: INTER. NORMALIZED RATIO 1.1
[2017-09-05 22:49] LABS: PTT 28.8 SEC (25-37)
[2017-09-06 02:51] VITALS: BP 139/92
== END 2017-09-06 02:52 ==
LOC: EME → EDBD 21:21 → EME 09-06 02:52
PROVIDERS: Emergency Medicine
DX: R11.2 Nausea with vomiting, unspecified (principal); I48.91 Unspecified atrial fibrillation; K57.30 Diverticulosis of large intestine without perforation or abscess without bleeding; E11.42 Type 2 diabetes mellitus with diabetic polyneuropathy; I11.0 Hypertensive heart disease with heart failure; I50.9 Heart failure, unspecified; Z66 Do not resuscitate; E78.5 Hyperlipidemia, unspecified; J44.9 Chronic obstructive pulmonary disease, unspecified; K21.9 Gastro-esophageal reflux disease without esophagitis; F03.90 Unspecified dementia, unspecified severity, without behavioral disturbance, psychotic disturbance, mood disturbance, and anxiety; Z87.442 Personal history of urinary calculi; Z88.5 Allergy status to narcotic agent; Z88.8 Allergy status to other drugs, medicaments and biological substances
CPT/HCPCS: 74177; 80053; 83690; 84484; 85027; 85610; 85730; 93005; 99281; 99284

== ENCOUNTER 2017-11-01 11:54 | Emergency (ER) | payer OTHER ==
[~2017-11-01] VITALS: Ht 157.5 cm; Wt 70.2 kg
[2017-11-01 12:48] LABS: APPEARANCE CLOUDY ((CLEAR)); BILIRUBIN NEGATIVE; BLOOD NEGATIVE; COLOR YELLOW ((YELLOW)); GLUCOSE (STRIP) NEGATIVE; KETONES NEGATIVE; LEUKOCYTES LARGE; NITRITE POSITIVE; PROTEIN (STRIP) 30; SPECIFIC GRAVITY 1.015 (1.000-1.030); UROBILINOGEN 0.2 MG/DL (0.2-1.0)
[2017-11-01 12:57] LABS: HEMATOCRIT 45.2 % (36.0-46.0); HEMOGLOBIN 15.2 G/DL (11.9-15.5); MCH 27.3 PG (29.0-34.0); MCHC 33.6 G/DL (30.0-36.0); MCV 81.3 FL (83-99); PLATELET COUNT 188 K/uL (156-360); RBC DIS.WIDTH-CV 16.4 % (11.8-14.6); RBC DIS.WIDTH-SD 48.5 % (39-53); RED BLOOD COUNT 5.56 M/uL (3.80-5.20); WHITE BLOOD COUNT 11.3 K/uL (4.1-10.2)
[2017-11-01 13:05] LABS: CHLORIDE 106 mEq/L (99-109); SODIUM 137 mEq/L (136-147)
[2017-11-01 13:06] LABS: POTASSIUM 6.2 mEq/L (3.7-5.4)
[2017-11-01 13:07] LABS: GLUCOSE 110 mg/dL (70-99)
[2017-11-01 13:11] LABS: CREATININE 1.2 mg/dL (0.6-1.3); GFR ESTIMATE (CALCULATED) 45 mL/min/
[2017-11-01 13:11] LABS: RED BLOOD CELLS 0-5 /HPF (0-5); WHITE BLOOD CELLS NONE SEEN /HPF (0-5)
[2017-11-01 13:12] LABS: BACTERIA 1+ /HPF; EPITHELIAL CELLS 1+ /HPF; MUCUS NONE SEEN /LPF; UCUL ADDED? NO
[2017-11-01 13:12] LABS: UREA NITROGEN (BUN) 23 mg/dL (9-23)
[2017-11-01 15:14] LABS: CHLORIDE 108 mEq/L (99-109); POTASSIUM 5.9 mEq/L (3.7-5.4); SODIUM 137 mEq/L (136-147)
[2017-11-01 15:15] LABS: GLUCOSE 110 mg/dL (70-99)
[2017-11-01 15:19] LABS: CREATININE 1.1 mg/dL (0.6-1.3); GFR ESTIMATE (CALCULATED) 50 mL/min/
[2017-11-01 15:20] LABS: UREA NITROGEN (BUN) 22 mg/dL (9-23)
[2017-11-01 17:58] VITALS: BP 106/73
== END 2017-11-01 18:00 | disposition home or self-care (01) ==
LOC: EME 11:54
PROVIDERS: Emergency Medicine
DX: E87.5 Hyperkalemia (principal); N39.0 Urinary tract infection, site not specified; E11.9 Type 2 diabetes mellitus without complications; I50.9 Heart failure, unspecified; I10 Essential (primary) hypertension; E78.5 Hyperlipidemia, unspecified; G62.9 Polyneuropathy, unspecified; J43.9 Emphysema, unspecified; G43.909 Migraine, unspecified, not intractable, without status migrainosus; K21.9 Gastro-esophageal reflux disease without esophagitis; F03.90 Unspecified dementia, unspecified severity, without behavioral disturbance, psychotic disturbance, mood disturbance, and anxiety; Z99.81 Dependence on supplemental oxygen; Z85.9 Personal history of malignant neoplasm, unspecified; Z87.442 Personal history of urinary calculi; Z87.440 Personal history of urinary (tract) infections; Z88.8 Allergy status to other drugs, medicaments and biological substances
CPT/HCPCS: 80048; 80048 91; 81003; 85027; 93005; 99281; 99284; J0696; J1940; J7030

== ENCOUNTER 2017-11-11 15:35 | Inpatient (IN) | payer OTHER ==
[~2017-11-11] VITALS: Ht 157.5 cm; Wt 65.2 kg
[2017-11-11 17:11] LABS: BASOPHIL (%) 0.3 % (0-1); EOSINOPHIL (%) 1.3 % (0-5); EOSINOPHIL COUNT 0.1 K/uL (0-0.3); HEMATOCRIT 45.4 % (36.0-46.0); IMMATURE GRANULOCYTE (%) 0.4 % (0.0-0.7); LYMPHOCYTE (%) 12.9 % (15-42); LYMPHOCYTE COUNT 0.9 K/uL (1.0-2.8); MCH 27.1 PG (29.0-34.0); MCV 81.9 FL (83-99); MONOCYTE (%) 10.7 % (3-12); MONOCYTE COUNT 0.8 K/uL (0-0.8); NEUTROPHIL (%) 74.4 % (45-76); NEUTROPHIL COUNT 5.3 K/uL (1.8-6.4); PLATELET COUNT 196 K/uL (156-360); RBC DIS.WIDTH-CV 16.3 % (11.8-14.6); RBC DIS.WIDTH-SD 48.6 % (39-53); RED BLOOD COUNT 5.54 M/uL (3.80-5.20); WHITE BLOOD COUNT 7.1 K/uL (4.1-10.2)
[2017-11-11 17:26] LABS: ALBUMIN 3.9 g/dL (3.2-4.8); CHLORIDE 108 mEq/L (99-109); SODIUM 137 mEq/L (136-147)
[2017-11-11 17:28] LABS: GLUCOSE 94 mg/dL (70-99); TOTAL PROTEIN 7.3 g/dL (6.4-8.3)
[2017-11-11 17:30] LABS: TOTAL BILIRUBIN 0.7 mg/dL (0.0-1.0)
[2017-11-11 17:32] LABS: ALKALINE PHOSPHATASE 138 IU/L (3-129); CREATININE 1.8 mg/dL (0.6-1.3); GFR ESTIMATE (CALCULATED) 28 mL/min/
[2017-11-11 17:33] LABS: TROP-I INTERPRETATION NEGATIVE; TROPONIN-I < 0.01 ng/mL (0.0-0.30); UREA NITROGEN (BUN) 32 mg/dL (9-23)
[2017-11-11 17:34] LABS: AST (GOT) 18 IU/L (2-34); DIRECT BILIRUBIN 0.3 mg/dL (0.0-0.3)
[2017-11-11 17:35] LABS: ALT (GPT) 9 IU/L (3-49)
[2017-11-11 17:41] LABS: POTASSIUM 6.4 mEq/L (3.7-5.4)
[2017-11-11 19:24] LABS: APPEARANCE CLEAR ((CLEAR)); BILIRUBIN NEGATIVE; BLOOD NEGATIVE; COLOR STRAW ((YELLOW)); GLUCOSE (STRIP) NEGATIVE; KETONES NEGATIVE; LEUKOCYTES TRACE; NITRITE NEGATIVE; PROTEIN (STRIP) NEGATIVE; SPECIFIC GRAVITY 1.006 (1.000-1.030); UROBILINOGEN 0.2 MG/DL (0.2-1.0)
[2017-11-11 19:30] LABS: BACTERIA RARE /HPF; EPITHELIAL CELLS RARE /HPF; HYALINE CASTS 0-5 /LPF; MUCUS TRACE /LPF; RED BLOOD CELLS 0-5 /HPF (0-5); UCUL ADDED? YES
[2017-11-11] MEDS ORDERED: SALINE NASAL14.1 GM TP (21:04)
[2017-11-11] MEDS ORDERED: [UNRECOGNIZED DRUG - OTHER] PO (21:06)
[2017-11-11] MEDS ORDERED: [UNRECOGNIZED DRUG - OTHER] TP (21:07)
[2017-11-11] MEDS ORDERED: BISAC-EVAC10 MG PR (21:09)
[2017-11-11 21:12] LABS: POTASSIUM 5.5 mEq/L (3.7-5.4)
[2017-11-11] MEDS ORDERED: COLACE100 MG PO (21:12)
[2017-11-11 21:13] LABS: MAGNESIUM 2.1 mg/dL (1.3-2.7)
[2017-11-11] MEDS ORDERED: ALDACTONE25 MG PO (21:14)
[2017-11-11] MEDS ORDERED: LYRICA75 MG PO (21:19)
[2017-11-11] MEDS ORDERED: LASIX20 MG PO (21:23)
[2017-11-11 23:04] VITALS: BP 160/86
[2017-11-12] VITALS (7 sets, daily range): BP systolic 102–169; BP diastolic 72–138
[2017-11-12 06:45] LABS: HEMATOCRIT 49.7 % (36.0-46.0); HEMOGLOBIN 16.6 G/DL (11.9-15.5); MCH 27.1 PG (29.0-34.0); MCHC 33.4 G/DL (30.0-36.0); MCV 81.2 FL (83-99); PLATELET COUNT 207 K/uL (156-360); RBC DIS.WIDTH-CV 17.2 % (11.8-14.6); RBC DIS.WIDTH-SD 47.8 % (39-53); RED BLOOD COUNT 6.12 M/uL (3.80-5.20); WHITE BLOOD COUNT 12.1 K/uL (4.1-10.2)
[2017-11-12 07:08] LABS: ALBUMIN 4.2 G/DL (3.2-4.8); CHLORIDE 102 MEQ/L (99-109); CREATININE 1.7 MG/DL (0.6-1.3); GFR ESTIMATE (CALCULATED) 30 mL/min/; PHOSPHORUS 4.1 mg/dL (2.5-4.9); POTASSIUM 5.1 MEQ/L (3.7-5.4); SODIUM 138 MEQ/L (136-147); UREA NITROGEN (BUN) 31 mg/dL (9-23)
[2017-11-12 07:15] LABS: GLUCOSE 163 mg/dL (70-99)
[2017-11-13 03:31] VITALS: BP 119/90
[2017-11-13 05:08] LABS: HEMATOCRIT 45.7 % (36.0-46.0); HEMOGLOBIN 15.2 G/DL (11.9-15.5); MCH 27.2 PG (29.0-34.0); MCHC 33.3 G/DL (30.0-36.0); MCV 81.8 FL (83-99); PLATELET COUNT 180 K/uL (156-360); RBC DIS.WIDTH-CV 16.5 % (11.8-14.6); RBC DIS.WIDTH-SD 48.2 % (39-53); RED BLOOD COUNT 5.59 M/uL (3.80-5.20); WHITE BLOOD COUNT 10.9 K/uL (4.1-10.2)
[2017-11-13 05:50] LABS: CHLORIDE 106 MEQ/L (99-109); CREATININE 1.2 MG/DL (0.6-1.3); GFR ESTIMATE (CALCULATED) 45 mL/min/; GLUCOSE 117 mg/dL (70-99); SODIUM 140 MEQ/L (136-147); UREA NITROGEN (BUN) 27 mg/dL (9-23)
[2017-11-13 07:39] VITALS: BP 127/93
[2017-11-13 11:55] VITALS: BP 99/84
[2017-11-13 16:15] VITALS: BP 106/71
[2017-11-13 17:12] LABS: UR CREATININE CONCENTRATION 160.9 MG/DL
[2017-11-13 20:53] VITALS: BP 112/70
[2017-11-13 22:44] VITALS: BP 106/60
[2017-11-14 03:36] VITALS: BP 102/60
[2017-11-14 05:49] LABS: HEMATOCRIT 41.5 % (36.0-46.0); HEMOGLOBIN 13.7 G/DL (11.9-15.5); MCH 27.2 PG (29.0-34.0); MCV 82.3 FL (83-99); PLATELET COUNT 167 K/uL (156-360); RBC DIS.WIDTH-CV 16.5 % (11.8-14.6); RBC DIS.WIDTH-SD 48.8 % (39-53); RED BLOOD COUNT 5.04 M/uL (3.80-5.20); WHITE BLOOD COUNT 5.9 K/uL (4.1-10.2)
[2017-11-14 06:12] LABS: CHLORIDE 109 MEQ/L (99-109); CREATININE 1.1 MG/DL (0.6-1.3); GFR ESTIMATE (CALCULATED) 50 mL/min/; GLUCOSE 122 mg/dL (70-99); SODIUM 139 MEQ/L (136-147); UREA NITROGEN (BUN) 28 mg/dL (9-23)
[2017-11-14 07:24] VITALS: BP 96/64
[2017-11-14] MEDS ORDERED: ZANTAC150 MG PO (11:44)
[2017-11-14] MEDS ORDERED: OXYCODONE HCL5 MG PO (11:44)
[2017-11-14 11:48] VITALS: BP 114/63
== END 2017-11-14 13:59 | disposition home or self-care (01) | DRG 683 ==
LOC: EME 15:35 → 5EAST 19:28 → EDOF 19:28 → 4EAST 19:28 → ENRESERV 19:32 → 5EAST 22:54 → ENRESERV 11-12 06:02 → 4EAST 11-12 06:53 → ENRESERV 11-13 13:16 → CANRESERV 11-13 13:16 → 4EAST 11-14 13:59
PROVIDERS: Emergency Medicine; Hospitalist; Internal Medicine
DX: N17.9 Acute kidney failure, unspecified (principal); E87.5 Hyperkalemia; T50.0X5A Adverse effect of mineralocorticoids and their antagonists, initial encounter; I48.2 Chronic atrial fibrillation; E87.2 Acidosis; I11.0 Hypertensive heart disease with heart failure; I50.9 Heart failure, unspecified; J44.9 Chronic obstructive pulmonary disease, unspecified; Z99.81 Dependence on supplemental oxygen; F03.90 Unspecified dementia, unspecified severity, without behavioral disturbance, psychotic disturbance, mood disturbance, and anxiety; N12 Tubulo-interstitial nephritis, not specified as acute or chronic; T47.1X5A Adverse effect of other antacids and anti-gastric-secretion drugs, initial encounter; E11.42 Type 2 diabetes mellitus with diabetic polyneuropathy; N20.0 Calculus of kidney; R63.0 Anorexia; Z91.81 History of falling; E78.5 Hyperlipidemia, unspecified; K21.9 Gastro-esophageal reflux disease without esophagitis; Z87.440 Personal history of urinary (tract) infections; Z90.710 Acquired absence of both cervix and uterus
CPT/HCPCS: 36415; 71045; 76770; 80048; 80048 91; 80069; 80076; 81003; 82330; 82570; 82575; 82948; 83735; 84132 91; 84300; 84484; 85025; 85027; 85651; 87086 GA; 87641; 93005; 94640; 94799; 99281; 99284; J1644; J1940; J2405; J7030; J7050

== ENCOUNTER 2017-11-29 10:25 | Inpatient (IN) | payer OTHER ==
[~2017-11-29] VITALS: Ht 157.5 cm; Wt 66.8 kg
[~2017-11-29 10:25] MED LIST changes: +SALINE NASAL14.1 GM TP; +[UNRECOGNIZED DRUG - OTHER] PO
[2017-11-29 11:00] LABS: HEMATOCRIT 40.5 % (36.0-46.0); HEMOGLOBIN 13.4 G/DL (11.9-15.5); MCH 27.7 PG (29.0-34.0); MCHC 33.1 G/DL (30.0-36.0); MCV 83.7 FL (83-99); PLATELET COUNT 139 K/uL (156-360); RBC DIS.WIDTH-CV 15.9 % (11.8-14.6); RBC DIS.WIDTH-SD 48.7 % (39-53); RED BLOOD COUNT 4.84 M/uL (3.80-5.20); WHITE BLOOD COUNT 14.1 K/uL (4.1-10.2)
[2017-11-29 11:09] LABS: ALBUMIN 3.7 g/dL (3.2-4.8); CHLORIDE 100 mEq/L (99-109); POTASSIUM 5.1 mEq/L (3.7-5.4); SODIUM 136 mEq/L (136-147)
[2017-11-29 11:11] LABS: GLUCOSE 121 mg/dL (70-99); TOTAL PROTEIN 6.9 g/dL (6.4-8.3)
[2017-11-29 11:13] LABS: TOTAL BILIRUBIN 1.8 mg/dL (0.0-1.0)
[2017-11-29 11:15] LABS: ALKALINE PHOSPHATASE 109 IU/L (3-129); GFR ESTIMATE (CALCULATED) 30 mL/min/
[2017-11-29 11:16] LABS: UREA NITROGEN (BUN) 23 mg/dL (9-23)
[2017-11-29 11:17] LABS: AST (GOT) 17 IU/L (2-34)
[2017-11-29 11:18] LABS: ALT (GPT) 11 IU/L (3-49)
[2017-11-29 11:28] LABS: TROP-I INTERPRETATION NEGATIVE; TROPONIN-I 0.03 ng/mL (0.0-0.30)
[2017-11-29 11:37] LABS: CREATININE 1.7 mg/dL (0.6-1.3)
[2017-11-29 11:38] LABS: APPEARANCE TURBID ((CLEAR)); BILIRUBIN NEGATIVE; BLOOD SMALL; COLOR AMBER ((YELLOW)); GLUCOSE (STRIP) NEGATIVE; KETONES NEGATIVE; LEUKOCYTES LARGE; NITRITE NEGATIVE; PROTEIN (STRIP) 100; SPECIFIC GRAVITY 1.017 (1.000-1.030); UROBILINOGEN 0.2 MG/DL (0.2-1.0)
[2017-11-29 11:52] LABS: UCUL ADDED? YES; WHITE BLOOD CELLS TNTC /HPF (0-5)
[2017-11-29] MEDS ORDERED: AYR SALINE NA14.1 GM BOTH NARES (13:25)
[2017-11-29] MEDS ORDERED: LIDODERM 5% P1 PATCH TD (13:27)
[2017-11-29] MEDS ORDERED: [UNRECOGNIZED DRUG - OTHER] TP (13:28)
[2017-11-29] MEDS ORDERED: LYRICA50 MG PO (13:30)
[2017-11-29] MEDS ORDERED: ZOFRAN4 MG PO (13:31)
[2017-11-29] MEDS ORDERED: PROVENTIL,2.5 MG/3 M IH (13:32)
[2017-11-29] MEDS ORDERED: KENALOG,ARISTOC80 GM TP (13:33)
[2017-11-29] MEDS ORDERED: COLACE100 MG PO (13:35)
[2017-11-29] MEDS ORDERED: FLEET ENEMA-AD118 ML PR (13:35)
[2017-11-29] MEDS ORDERED: CIPRO250 MG PO (13:36)
[2017-11-29] MEDS ORDERED: DULCOLAX10 MG PR (13:37)
[2017-11-29] MEDS ORDERED: EXELON3 MG PO (13:38)
[2017-11-29] MEDS ORDERED: ULTRAM50 MG PO ×2 (13:38→13:40)
[2017-11-29] MEDS ORDERED: ZANTAC150 MG PO (13:41)
[2017-11-29] MEDS ORDERED: LASIX20 MG PO (13:41)
[2017-11-29] MEDS ORDERED: CARDIZEM CD,CA180 MG PO (13:42)
[2017-11-29] MEDS ORDERED: CRANBERRY425 MG PO (13:42)
[2017-11-29] MEDS ORDERED: ADVAIR 250/501 DISK IH (13:42)
[2017-11-29] MEDS ORDERED: PRESERVISION A1 EAC2 PO (13:43)
[2017-11-29] MEDS ORDERED: TYLENOL REGULA325 MG PO (13:44)
[2017-11-29] MEDS ORDERED: MILK OF MAGN PO (13:45)
[2017-11-29] MEDS ORDERED: PYRIDIUM100 MG PO (13:46)
[2017-11-29] MEDS ORDERED: ROXICODONE5 MG PO (13:46)
[2017-11-29 16:21] VITALS: BP 122/80
[2017-11-29 18:02] LABS: TROP-I INTERPRETATION NEGATIVE; TROPONIN-I 0.05 ng/mL (0.0-0.30)
[2017-11-29 19:36] VITALS: BP 128/80
[2017-11-29 23:35] VITALS: BP 142/96
[2017-11-30] VITALS (9 sets, daily range): BP systolic 99–169; BP diastolic 64–96
[2017-11-30 01:01] LABS: TROP-I INTERPRETATION NEGATIVE; TROPONIN-I 0.02 ng/mL (0.0-0.30)
[2017-11-30 01:25] LABS: BASOPHIL (%) 0.1 % (0-1); EOSINOPHIL (%) 0.1 % (0-5); HEMATOCRIT 40.5 % (36.0-46.0); HEMOGLOBIN 13.5 G/DL (11.9-15.5); IMMATURE GRANULOCYTE (%) 0.4 % (0.0-0.7); LYMPHOCYTE (%) 3.5 % (15-42); LYMPHOCYTE COUNT 0.5 K/uL (1.0-2.8); MCH 27.7 PG (29.0-34.0); MCHC 33.3 G/DL (30.0-36.0); MCV 83.2 FL (83-99); MONOCYTE (%) 7.3 % (3-12); MONOCYTE COUNT 1.1 K/uL (0-0.8); NEUTROPHIL (%) 88.6 % (45-76); NEUTROPHIL COUNT 12.7 K/uL (1.8-6.4); PLATELET COUNT 143 K/uL (156-360); RBC DIS.WIDTH-SD 48.2 % (39-53); RED BLOOD COUNT 4.87 M/uL (3.80-5.20); WHITE BLOOD COUNT 14.3 K/uL (4.1-10.2)
[2017-11-30 01:33] LABS: ALBUMIN 3.4 g/dL (3.2-4.8); CHLORIDE 104 mEq/L (99-109); POTASSIUM 4.9 mEq/L (3.7-5.4); SODIUM 137 mEq/L (136-147)
[2017-11-30 01:36] LABS: GLUCOSE 141 mg/dL (70-99); TOTAL PROTEIN 6.7 g/dL (6.4-8.3)
[2017-11-30 01:39] LABS: ALKALINE PHOSPHATASE 98 IU/L (3-129); CREATININE 1.5 mg/dL (0.6-1.3); GFR ESTIMATE (CALCULATED) 35 mL/min/
[2017-11-30 01:40] LABS: UREA NITROGEN (BUN) 23 mg/dL (9-23)
[2017-11-30 01:41] LABS: AST (GOT) 16 IU/L (2-34)
[2017-11-30 01:42] LABS: ALT (GPT) 11 IU/L (3-49); TOTAL BILIRUBIN 1.4 mg/dL (0.0-1.0)
[2017-11-30 06:27] LABS: BASOPHIL (%) 0.2 % (0-1); EOSINOPHIL (%) 0 % (0-5); HEMATOCRIT 40.5 % (36.0-46.0); HEMOGLOBIN 12.8 G/DL (11.9-15.5); IMMATURE GRANULOCYTE (%) 0.5 % (0.0-0.7); LYMPHOCYTE (%) 4.5 % (15-42); LYMPHOCYTE COUNT 0.6 K/uL (1.0-2.8); MCH 27.1 PG (29.0-34.0); MCHC 31.6 G/DL (30.0-36.0); MCV 85.6 FL (83-99); MONOCYTE (%) 9.8 % (3-12); MONOCYTE COUNT 1.3 K/uL (0-0.8); NEUTROPHIL COUNT 11.3 K/uL (1.8-6.4); PLATELET COUNT 131 K/uL (156-360); RBC DIS.WIDTH-CV 15.9 % (11.8-14.6); RBC DIS.WIDTH-SD 49.6 % (39-53); RED BLOOD COUNT 4.73 M/uL (3.80-5.20); WHITE BLOOD COUNT 13.3 K/uL (4.1-10.2)
[2017-11-30 07:51] LABS: CHLORIDE 105 MEQ/L (99-109); CREATININE 1.5 MG/DL (0.6-1.3); GFR ESTIMATE (CALCULATED) 35 mL/min/; GLUCOSE 120 mg/dL (70-99); POTASSIUM 4.6 MEQ/L (3.7-5.4); SODIUM 139 MEQ/L (136-147); UREA NITROGEN (BUN) 22 mg/dL (9-23)
[2017-12-01] VITALS: BP 124/81
[2017-12-01 04:00] VITALS: BP 122/68
[2017-12-01] MEDS ORDERED: AUGMENTIN875 MG PO (08:12)
[2017-12-01 08:14] VITALS: BP 149/78
[2017-12-01] MEDS ORDERED: MEDROL DOSEPAK4 MG PO (08:19)
[2017-12-01 08:50] LABS: HEMATOCRIT 39.1 % (36.0-46.0); HEMOGLOBIN 12.3 G/DL (11.9-15.5); MCH 27.5 PG (29.0-34.0); MCHC 31.5 G/DL (30.0-36.0); MCV 87.3 FL (83-99); PLATELET COUNT 108 K/uL (156-360); RBC DIS.WIDTH-CV 15.8 % (11.8-14.6); RBC DIS.WIDTH-SD 50.3 % (39-53); RED BLOOD COUNT 4.48 M/uL (3.80-5.20); WHITE BLOOD COUNT 10.6 K/uL (4.1-10.2)
[2017-12-01 09:13] LABS: CHLORIDE 105 MEQ/L (99-109); CREATININE 1.3 MG/DL (0.6-1.3); GFR ESTIMATE (CALCULATED) 41 mL/min/; GLUCOSE 106 mg/dL (70-99); POTASSIUM 4.2 MEQ/L (3.7-5.4); SODIUM 136 MEQ/L (136-147); UREA NITROGEN (BUN) 19 mg/dL (9-23)
[2017-12-01 11:53] VITALS: BP 132/75
== END 2017-12-01 14:40 | disposition home or self-care (01) | DRG 689 ==
LOC: EME 10:25 → 5SOUTH 13:37 → EDOF 13:37 → CANRESERV 13:41 → ENRESERV 13:41 → 5SOUTH 16:00
PROVIDERS: Emergency Medicine Emergency Medical Services; Hospitalist; Internal Medicine
DX: N39.0 Urinary tract infection, site not specified (principal); G93.41 Metabolic encephalopathy; N17.9 Acute kidney failure, unspecified; J96.10 Chronic respiratory failure, unspecified whether with hypoxia or hypercapnia; I48.2 Chronic atrial fibrillation; G62.9 Polyneuropathy, unspecified; E11.9 Type 2 diabetes mellitus without complications; E86.0 Dehydration; J43.9 Emphysema, unspecified; R35.0 Frequency of micturition; R30.0 Dysuria; E78.5 Hyperlipidemia, unspecified; I11.0 Hypertensive heart disease with heart failure; K59.00 Constipation, unspecified; F03.90 Unspecified dementia, unspecified severity, without behavioral disturbance, psychotic disturbance, mood disturbance, and anxiety; R68.2 Dry mouth, unspecified; I50.9 Heart failure, unspecified; K21.9 Gastro-esophageal reflux disease without esophagitis; Z91.81 History of falling; Z99.81 Dependence on supplemental oxygen; Z87.442 Personal history of urinary calculi; Z87.440 Personal history of urinary (tract) infections; Z90.710 Acquired absence of both cervix and uterus
CPT/HCPCS: 71045; 80048; 80053; 81003; 83605; 83880; 84484; 85025; 85025 91; 85027; 87040; 87086; 93005; 94640; 94799; 99281; 99285; J0696; J1160; J1644; J7030

== ENCOUNTER 2017-12-02 10:12 | Inpatient (IN) | payer OTHER ==
[~2017-12-02] VITALS: Ht 157.5 cm; Wt 90.1 kg
[~2017-12-02 10:12] MED LIST changes: +AUGMENTIN875 MG PO; +CIPRO250 MG PO; +KENALOG,ARISTOC80 GM TP; +MEDROL DOSEPAK4 MG PO; +ULTRAM50 MG PO; +ZOFRAN4 MG PO
[2017-12-02 11:34] LABS: BASOPHIL (%) 0.1 % (0-1); EOSINOPHIL (%) 0.2 % (0-5); HEMOGLOBIN 11.2 G/DL (11.9-15.5); IMMATURE GRANULOCYTE (%) 0.5 % (0.0-0.7); LYMPHOCYTE (%) 1.4 % (15-42); LYMPHOCYTE COUNT 0.2 K/uL (1.0-2.8); MCH 27.6 PG (29.0-34.0); MCHC 32.9 G/DL (30.0-36.0); MCV 83.7 FL (83-99); MONOCYTE COUNT 0.7 K/uL (0-0.8); NEUTROPHIL (%) 90.8 % (45-76); NEUTROPHIL COUNT 9.6 K/uL (1.8-6.4); PLATELET COUNT 139 K/uL (156-360); RBC DIS.WIDTH-CV 15.4 % (11.8-14.6); RED BLOOD COUNT 4.06 M/uL (3.80-5.20); WHITE BLOOD COUNT 10.6 K/uL (4.1-10.2)
[2017-12-02 11:42] LABS: ALBUMIN 3.1 g/dL (3.2-4.8)
[2017-12-02 11:43] LABS: CHLORIDE 107 mEq/L (99-109); SODIUM 136 mEq/L (136-147)
[2017-12-02 11:45] LABS: GLUCOSE 148 mg/dL (70-99); TOTAL PROTEIN 6.2 g/dL (6.4-8.3)
[2017-12-02 11:48] LABS: ALKALINE PHOSPHATASE 100 IU/L (3-129)
[2017-12-02 11:49] LABS: CREATININE 1.1 mg/dL (0.6-1.3); GFR ESTIMATE (CALCULATED) 50 mL/min/; TOTAL BILIRUBIN 0.9 mg/dL (0.0-1.0)
[2017-12-02 11:50] LABS: UREA NITROGEN (BUN) 18 mg/dL (9-23)
[2017-12-02 11:52] LABS: ALT (GPT) 20 IU/L (3-49)
[2017-12-02 11:53] LABS: AST (GOT) 30 IU/L (2-34)
[2017-12-02 12:21] LABS: APPEARANCE CLEAR ((CLEAR)); BILIRUBIN NEGATIVE; BLOOD SMALL; COLOR YELLOW ((YELLOW)); GLUCOSE (STRIP) NEGATIVE; KETONES NEGATIVE; LEUKOCYTES NEGATIVE; NITRITE NEGATIVE; PROTEIN (STRIP) 30; SPECIFIC GRAVITY 1.014 (1.000-1.030); UROBILINOGEN 0.2 MG/DL (0.2-1.0)
[2017-12-02 12:25] LABS: BACTERIA NONE SEEN /HPF; EPITHELIAL CELLS RARE /HPF; HYALINE CASTS 0-5 /LPF; MUCUS TRACE /LPF; RED BLOOD CELLS 0-5 /HPF (0-5); UCUL ADDED? NO; WHITE BLOOD CELLS 0-5 /HPF (0-5)
[2017-12-02 16:56] VITALS: BP 98/55
[2017-12-02 21:24] VITALS: BP 100/50
[2017-12-03 00:18] VITALS: BP 146/62
[2017-12-03 03:34] VITALS: BP 140/55
[2017-12-03 06:15] LABS: BASOPHIL (%) 0.1 % (0-1); EOSINOPHIL (%) 0 % (0-5); HEMATOCRIT 36.8 % (36.0-46.0); IMMATURE GRANULOCYTE (%) 0.5 % (0.0-0.7); LYMPHOCYTE (%) 2.7 % (15-42); LYMPHOCYTE COUNT 0.2 K/uL (1.0-2.8); MCH 27.3 PG (29.0-34.0); MCHC 32.6 G/DL (30.0-36.0); MCV 83.6 FL (83-99); MONOCYTE (%) 2.6 % (3-12); MONOCYTE COUNT 0.2 K/uL (0-0.8); NEUTROPHIL (%) 94.1 % (45-76); NEUTROPHIL COUNT 7.9 K/uL (1.8-6.4); PLATELET COUNT 148 K/uL (156-360); RBC DIS.WIDTH-CV 15.2 % (11.8-14.6); RBC DIS.WIDTH-SD 46.8 % (39-53); WHITE BLOOD COUNT 8.4 K/uL (4.1-10.2)
[2017-12-03 06:35] LABS: CHLORIDE 105 MEQ/L (99-109); CREATININE 1.1 MG/DL (0.6-1.3); GFR ESTIMATE (CALCULATED) 50 mL/min/; GLUCOSE 172 mg/dL (70-99); POTASSIUM 3.9 MEQ/L (3.7-5.4); SODIUM 138 MEQ/L (136-147); UREA NITROGEN (BUN) 20 mg/dL (9-23)
[2017-12-03 08:27] VITALS: BP 167/77
[2017-12-03 11:45] VITALS: BP 142/70
[2017-12-03 17:16] VITALS: BP 166/93
[2017-12-03 20:00] VITALS: BP 138/68
[2017-12-04 04:50] VITALS: BP 140/68
[2017-12-04 07:55] VITALS: BP 146/72
[2017-12-04 11:46] VITALS: BP 122/67
[2017-12-04 15:03] VITALS: BP 112/79
[2017-12-04 20:07] VITALS: BP 132/75
[2017-12-05] VITALS (7 sets, daily range): BP systolic 112–156; BP diastolic 68–85
[2017-12-06] VITALS: BP 144/86
[2017-12-06 04:00] VITALS: BP 103/71
[2017-12-06 06:09] LABS: BASOPHIL (%) 0.1 % (0-1); EOSINOPHIL (%) 0 % (0-5); HEMATOCRIT 35.2 % (36.0-46.0); HEMOGLOBIN 11.5 G/DL (11.9-15.5); IMMATURE GRANULOCYTE (%) 1.8 % (0.0-0.7); LYMPHOCYTE COUNT 0.3 K/uL (1.0-2.8); MCHC 32.7 G/DL (30.0-36.0); MCV 82.6 FL (83-99); MONOCYTE (%) 5.7 % (3-12); MONOCYTE COUNT 0.6 K/uL (0-0.8); NEUTROPHIL (%) 89.4 % (45-76); RBC DIS.WIDTH-CV 15.3 % (11.8-14.6); RBC DIS.WIDTH-SD 46.4 % (39-53); RED BLOOD COUNT 4.26 M/uL (3.80-5.20); WHITE BLOOD COUNT 10.1 K/uL (4.1-10.2)
[2017-12-06 06:20] LABS: PLATELET COUNT 239 K/uL (156-360)
[2017-12-06 06:34] LABS: CHLORIDE 102 MEQ/L (99-109); CREATININE 1.2 MG/DL (0.6-1.3); GFR ESTIMATE (CALCULATED) 45 mL/min/; GLUCOSE 210 mg/dL (70-99); SODIUM 138 MEQ/L (136-147); UREA NITROGEN (BUN) 30 mg/dL (9-23)
[2017-12-06 07:19] VITALS: BP 137/63
[2017-12-06 11:02] VITALS: BP 163/98
[2017-12-06] MEDS ORDERED: PREDNISONE5 M1 PO (11:34)
[2017-12-06] MEDS ORDERED: LEVAQUIN500 MG PO (11:35)
== END 2017-12-06 16:07 | disposition home or self-care (01) | DRG 189 ==
LOC: EME 10:12 → EDOF 14:49 → 3EAST 14:49 → ENRESERV 14:54 → 3EAST 16:32 → ENRESERV 12-05 15:45 → 5EAST 12-05 16:35
PROVIDERS: Emergency Medicine; Hospitalist; Internal Medicine
DX: J96.21 Acute and chronic respiratory failure with hypoxia (principal); J18.9 Pneumonia, unspecified organism; J44.0 Chronic obstructive pulmonary disease with (acute) lower respiratory infection; J44.1 Chronic obstructive pulmonary disease with (acute) exacerbation; E11.42 Type 2 diabetes mellitus with diabetic polyneuropathy; I48.2 Chronic atrial fibrillation; E78.5 Hyperlipidemia, unspecified; Z87.440 Personal history of urinary (tract) infections; I11.0 Hypertensive heart disease with heart failure; I50.9 Heart failure, unspecified; F03.90 Unspecified dementia, unspecified severity, without behavioral disturbance, psychotic disturbance, mood disturbance, and anxiety; Z87.442 Personal history of urinary calculi; K21.9 Gastro-esophageal reflux disease without esophagitis
CPT/HCPCS: 71046; 71250; 80048; 80053; 81003; 82948; 83605; 85025; 87040; 87070; 87205; 87449; 93005; 94640; 94760; 94799; 99281; 99285; J0692; J1644; J1815; J1956; J2920; J3370; J7030; J7512